=== PATIENT | female | born 1965 | race Hispanic/Latino ===

== ENCOUNTER 2018-02-27 10:15 | Emergency (ER) | payer OTHER ==
[~2018-02-27] VITALS: Ht 157.5 cm; Wt 81.6 kg
[~2018-02-27 10:15] MED LIST: COLACE100 MG PO; FERROUS SULFAT325 MG PO; LISINOPRIL10 MG PO; MACRODANTIN100 MG PO; TYLENOL WITH C1 EACH PO
[2018-02-27] MEDS ORDERED: MORPHINE SULFATE 2 MG/ML SYR IV STA (10:37)
[2018-02-27] MEDS ORDERED: ONDANSETRON HCL 4 MG ORAL DISINTEGRATING TAB PO ONE (10:45)
[2018-02-27] MEDS ORDERED: TETANUS/DIPHTHERIA TOX ADULT 0.5 ML SYR IM ONE (10:45)
[2018-02-27] MEDS ORDERED: LIDOCAINE 1% W/EPINEPHRINE 20 ML VIAL INJ ONE (11:15)
[2018-02-27] MEDS ORDERED: CEFAZOLIN SOD 1 GM VIAL IV SCH (12:00)
[2018-02-27] MEDS ORDERED: CEFAZOLIN SOD 1 GM in WATER STERILE 10ML VIAL 10 ML IV SCH (12:00)
--- NOTE | 2018-02-27 12:04 | Diagnostic Imaging Report ---
PROCEDURE:X-RAY LEFT KNEE, THREE OR MORE VIEWS COMPARISON:None. INDICATIONS:LACERATION TO PATELLA FINDINGS: The bones are well-mineralized. There are no fractures, subluxations, lytic or blastic lesions. There is no evidence of a joint effusion. CONCLUSION: No acute radiographic abnormality. Dictated by: James Turner M.D. on 02/27/2018 at 12:05 Electronically approved by: James Turner M.D. on 02/27/2018 at 12:05
--- NOTE | 2018-02-27 12:05 | Diagnostic Imaging Report ---
PROCEDURE:X-RAY LEFT LOWER LEG COMPARISON:None. INDICATIONS:LACERATION TO THE KNEE FINDINGS: There are no fractures, dislocations, lytic or blastic lesions. The bones are well-mineralized. The soft-tissues are unremarkable. CONCLUSION: No acute radiographic abnormality. Dictated by: James Turner M.D. on 02/27/2018 at 12:06 Electronically approved by: James Turner M.D. on 02/27/2018 at 12:06
[2018-02-27 13:33] VITALS: BP 149/80
== END 2018-02-27 13:50 | disposition home or self-care (01) ==
LOC: ER 10:15
PROC: 0HQLXZZ Repair Left Lower Leg Skin, External Approach (ICD-10-PCS; principal; 2018-02-27)
DX: S81.812A Laceration without foreign body, left lower leg, initial encounter (principal); S80.02XA Contusion of left knee, initial encounter; W10.8XXA Fall (on) (from) other stairs and steps, initial encounter; Y92.008 Other place in unspecified non-institutional (private) residence as the place of occurrence of the external cause; I10 Essential (primary) hypertension
CPT/HCPCS: 12034; 73562; 73590; 90471; 90714; 99284; J0690; J2270

== ENCOUNTER 2018-03-05 17:36 | Emergency (ER) | payer OTHER ==
[~2018-03-05] VITALS: Ht 157.5 cm; Wt 81.6 kg
--- OUTSIDE RECORDS SUMMARY | 2018-03-05 17:40 | XMS REPORT | Continuity of Care Document ---
Author Author [facility] Organization [facility] Address [address] [place] [place] [address] Phone Unavailable Care Team Providers Care Community Associate Name Role Phone VIV GONZALES PCP Insurance Providers Guarantor Viraj Koo Address [address] [place] [address] Email PTDECLINED [facility] Policy Number [id number] Subscriber's Name Viraj Koo Relationship 18 Self / Same As Patient Group Number [id number] Group Name [employer] Effective Date 15 Advance Directives Directive Response Recorded Date/Time Does the patient have an advance directive? No 10/13/15 11:15am If yes, is advance directive on file with [facility]? No 08/16/14 11:19am If not on file with [facility] will patient provide a copy? No 08/16/14 11:19am Do you have a Directive to Physician? No 02/27/18 1:09pm Do you have a Medical Power of Aircraft Fuselage Framer? No 02/27/18 1:09pm Do you have an out of hospital Do Not Resuscitate Order? No 02/27/18 1:09pm Do you have any special needs we should be aware of? No 02/27/18 1:09pm Do you have a support person here with you today? Yes 02/27/18 1:09pm Did patient receive Notice of Privacy Practices? Yes 02/27/18 1:09pm Did patient receive patient rights and responsibilities? Yes 02/27/18 1:09pm Problems No problem information available. Medications Current Home Medications Medication Dose Units Route Directions Days Qty Instructions Start Date Acetaminophen With Codeine (Tylenol With Codeine #3 Tablet) 1 Each Tablet 300 Mg Oral Every 4 Hours for Pain Docusate Sodium (Colace) 100 Mg Cap 100 Mg Oral Twice A Day 30 Cap Ferrous Sulfate 325 Mg Tablet 325 Mg Oral Twice A Day Lisinopril 10 Mg Tablet 20 Mg Oral Daily 30 Tab Nitrofurantoin Macrocrystal (Macrodantin) 100 Mg Capsule 100 Mg Oral Twice A Day 14 Cap Social History Social History Problem Response Recorded Date/Time Onset Date Status Hx Psychiatric Problems No 10/13/2015 11:15am Not Applicable Not Applicable Smoking Status Start Date Stop Date Never Smoker Hospital Discharge Instructions No hospital discharge instruction information available. Plan of Care Discharge Date 02/27/18 1:50pm Disposition HOME, SELF-CARE Condition at Discharge Stable Instructions/Education Provided Laceration Forms Provided Work/School Excuse Prescriptions See Medication Section Referrals RADHA ELLIS MD Order Date: Call for an appointment Address: [address] [place] [address] [place] [id number] Additional Instructions/Education Clean wound/s daily and keep dry. You may use soap and water 2 to 3 times per day and apply a thin layer of antibiotic ointment. Take Motrin/Tylenol as needed for pain. Take the prescribed medication as Watch for any local signs of infection. Follow up with Orthopedic referral physician listed in 7-10 days for suture removal or sooner if you notice any signs of infection. Return to the emergency department for any concerns. Limpie las heridas a diario y mantngase seco. Puede usar agua y jabn de 2 a 3 veces por da y aplicar jaclyn capa delgada de ungento antibitico. Sorento Motrin / Tylenol segn sea necesario para el dolor. Sorento la medicacin prescrita live observacin de cualquier signo local de infeccin. Realice un seguimiento con el mdico de referencia ortopdico que figura en la lista de 7 a 10 bentley para la extraccin de la sutura o antes si observa signos de infeccin. Regrese al departamento de emergencias por cualquier inquietud. Functional Status No functional status information available. Allergies, Adverse Reactions, Alerts Allergen Type Severity Reaction Status Last Updated Latex Allergy Unknown Active 02/27/18 Immunizations No immunization information available. Vital Signs Acute Vital Signs Vital Response Date/Time Pulse Pulse Rate (adult) 67 bpm (60 - 90) 02/27/2018 1:33pm Respiratory Rate 18 bpm (12 - 24) 02/27/2018 1:33pm Blood Pressure 149/80 mm Hg 02/27/2018 1:33pm Height 5 ft 2 in 02/27/2018 10:20am Weight 180 lb 02/27/2018 10:20am Body Mass Index 32.9 kg/m^2 02/27/2018 10:20am Results No relevant diagnostic test, laboratory data and/or discharge summary information available. Procedures No procedure information available. Encounters Encounter Location Arrival/Admit Date Discharge/Depart Date Attending Provider Departed Emergency Room [facility] 02/27/18 10:15am 02/27 1:50pm ANJALI EID MD
--- OUTSIDE RECORDS SUMMARY | 2018-03-05 17:40 | XMS REPORT ---
Author Author [facility] Address Unknown Phone Unavailable Care Team Providers Care Tow Motor Driver Name Role Phone ANJALI EID Unavailable Unavailable Problems This patient has no known problems. Allergies, Adverse Reactions, Alerts This patient has no known allergies or adverse reactions. Medications This patient has no known medications. Results Test Description Test Time Test Comments Text Results Atomic Results Result Comments LOWER LEG LEFT [place] [id number] [place] [id number] Patient Name: VIRAJ DOOLEY MR #: [id number] : 1965 Age/Sex: 52/F Req # : [id number] Adm Physician: Ordered by: ROBB CHOU PROVIDER RELATIONS CONSULTANT Report #: [id number] Location: ER Room/Bed: Procedure: [id number] DX/LOWER LEG LEFT Exam Date: 02/27/18 Exam Time : 1130 REPORT STATUS: Signed PROCEDURE: X-RAY LEFT LOWER LEG COMPARISON: None. INDICATIONS: LACERATION TO THE KNEE FINDINGS: There are no fractures, dislocations, lytic or blastic lesions. The bones are well-mineralized. The soft-tissues are unremarkable. CONCLUSION: No acute radiographic abnormality. Dictated by: Jose Guadalupe Medley M.D. on 02/27/2018 at 12:06 Electronically approved by: Jose Guadalupe Medley M.D. on 02/27/2018 at 12:06 Dictated By: JOSE GUADALUPE MEDLEY MD 05 Transcribed By: BRIDGER on 02/27/181205 COPY TO: ROBB CHOU NP KNEE LEFT THREE VIEWS [place] [address] Patient Name: VIRAJ DOOLEY MR #: [id number] : 1965 Age/Sex: 52/F Req #: [id number] Adm Physician: Ordered by: ROBB CHOU NP Report #: [id number] Location: ER Room/Bed: Procedure: [id number] DX/KNEE LEFT THREE VIEWS Exam Date: 02/27/18 Exam Time: 1130 REPORT STATUS: Signed PROCEDURE: X- RAY LEFT KNEE, THREE OR MORE VIEWS COMPARISON: None. INDICATIONS: LACERATION TO PATELLA FINDINGS: The bones are well-mineralized. There are no fractures, subluxations, lytic or blastic lesions. There is no evidence of a joint effusion. CONCLUSION: No acute radiographic abnormality. Dictated by: Jose Guadalupe Medley M.D. on 02/27/2018 at 12:05 Electronically approved by: Jose Guadalupe Medley M.D. on 02/27/2018 at 12:05 Dictated By: JOSE GUADALUPE MEDLEY MD 04 COPY TO: ROBB CHOU NP
[2018-03-05] MEDS ORDERED: DEXAMETHASONE SOD PHOS 10 MG/1 ML VIAL INJ ONE (18:00)
[2018-03-05] MEDS ORDERED: DIAZEPAM 5 MG TAB PO ONE (18:00)
[2018-03-05] MEDS ORDERED: KETOROLAC TROMETHAMINE 60 MG/2 ML VIAL IM ONE (18:00)
[2018-03-05] MEDS ORDERED: DIAZEPAM 2 MG TAB PO ONE (18:00)
[2018-03-05] MEDS ORDERED: HYDROCODONE/APAP 10MG-325MG TAB PO ONE (18:00)
--- NOTE | 2018-03-05 18:32 | Diagnostic Imaging Report ---
PROCEDURE:HIP RIGHT 2-3 VW (+/- PELVIS) COMPARISON:None. INDICATIONS:FALL LAST , RIGHT HIP PAIN FINDINGS: Normal mineralization. No acute displaced fracture or dislocation. Joint spaces are within normal limits. Focal lucent lesion with peripheral sclerosis is present in the right femoral neck. No expansile lucent or sclerotic lesion. The soft tissues are unremarkable. CONCLUSION: No acute radiographic abnormality. Nonaggressive bony lesion in the right femoral neck. Dictated by: James Turner M.D. on 03/05/2018 at 18:34 Electronically approved by: James Turner M.D. on 03/05/2018 at 18:34
[2018-03-05 19:15] VITALS: BP 107/61
== END 2018-03-05 19:11 | disposition home or self-care (01) ==
LOC: ER 17:36
DX: M25.551 Pain in right hip (principal); M54.31 Sciatica, right side; I10 Essential (primary) hypertension
CPT/HCPCS: 73502; 96372; 99284; J1100; J1885

== ENCOUNTER → 2018-05-22 | Outpatient (CLI) | payer OTHER ==
[~2018-05-22] MED LIST changes: +DIATRIZOATE MEGL/DIATRIZOA SOD 30 ML BTL PO ONE; +IOPAMIDOL 370 MG/ML 200 ML INFUS..BTL INJ ONE; +SODIUM CHLORIDE 0.9% 50ML 50 ML ONE
[2018-05-22 15:22] LABS: BLOOD UREA NITROGEN 9 mg/dL (7-26); BUN/CREATININE RATIO 14 (6-25); CREATININE, SERUM 0.63 mg/dL (0.57-1.11); EST GLOMERULAR FILTRATION RATE > 60 ML/MIN (60-)
--- NOTE | 2018-05-22 18:08 | Diagnostic Imaging Report ---
PROCEDURE: CT ABDOMEN AND PELVIS WITH CONTRAST TECHNIQUE: The abdomen and pelvis were scanned utilizing a multidetector helical scanner from the diaphragm to the lesser trochanter after the IV administration of 100 cc of Isovue 370 and the oral administration of dilute Gastrografin. Coronal and sagittal multiplanar reformations were obtained. COMPARISON: Patients [facility], CT, CT ABDOMEN/PELVIS W, 08/16/2014, 12:17. INDICATIONS: DIVERTICULITIS FINDINGS: LOWER THORAX: Linear opacities in the lateral right middle lobe and right lower lobe (series 2, image 6), likely representing subsegmental atelectasis or scarring. HEPATOBILIARY: Diffusely decreased attenuation of the hepatic parenchyma compared to the spleen, consistent with steatosis. Normal hepatic contour and size. Slight interval increase in size of 3.9 x 3.0 x 3.4 cm multilobulated lesion with fluid density and very thin internal septations in hepatic segment VIII (series 2, image 20, coronal, image 66, and sagittal image 56), which previously measured approximately 3.6 x 2.5 x 2.7 cm. No other focal lesions. No biliary ductal dilation. Cholecystectomy clips. SPLEEN: No splenomegaly. PANCREAS: No focal masses or ductal dilatation. ADRENALS: Left adrenal gland is unremarkable. Stable 1.1 x 1.1 cm nodule in the right adrenal gland (series 2 image 30). KIDNEYS/URETERS: No hydronephrosis, stones, or solid mass lesions. PELVIC ORGANS/BLADDER: Bladder is unremarkable. Uterus is absent. No adnexal masses. PERITONEUM / RETROPERITONEUM: No free air or fluid. LYMPH NODES: No lymphadenopathy. VESSELS: Unremarkable. GI TRACT: Descending and sigmoid colon diverticulosis. There is an approximately 4 cm segment at the junction of the distal descending and proximal sigmoid colon which shows moderate wall thickening and moderate surrounding fat stranding (coronal image 57 and series 2, images 55-70). Punctate extraluminal air foci are noted in the adjacent mesentery (for example series 2, images 66 and 64). No well-defined enhancing fluid collections. Rest of the bowel shows no wall thickening, dilation, or obstruction. Stomach is unremarkable. BONES AND SOFT TISSUES: No aggressive lytic lesions. Stable fat-containing umbilical hernia (sagittal image 75), which measures approximately 3.0 x 3.1 x 3.1 cm (sagittal image 74). IMPRESSION: 1. Findings consistent with acute diverticulitis at the junction of the distal descending and proximal sigmoid colon, with microperforation, contained in the adjacent mesentery. No camelia pneumoperitoneum or abscess formation. 2. Diffuse hepatic steatosis. 3. Slight interval increase in size in multilobulated simple cystic lesion in hepatic segment VIII, which may represent 3 adjacent simple cysts. 4. Stable 1.1 cm indeterminate nodule in the right adrenal gland. This lesion may be further assessed with CT abdomen with adrenal mass protocol on a nonemergent basis. 5. Findings discussed with Dr. Cordero, May 22, 2018 at 1755 hrs. Nav Ojeda M.D. Dictated by: Nav Ojeda M.D. on 05/22/2018 at 18:12 Electronically approved by: Nav Ojeda M.D. on 05/22/2018 at 18:12
== END ==
LOC: CT 14:42
PROVIDERS: ATTEND Family Medicine
DX: R10.9 Unspecified abdominal pain (principal)
CPT/HCPCS: 36415; 74177; 82565; 84520; Q9967

== ENCOUNTER 2018-09-19 21:26 | Emergency (ER) | payer OTHER ==
[~2018-09-19] VITALS: Ht 157.5 cm; Wt 81.6 kg
[~2018-09-19 21:26] MED LIST changes: -DIATRIZOATE MEGL/DIATRIZOA SOD 30 ML BTL PO ONE; -IOPAMIDOL 370 MG/ML 200 ML INFUS..BTL INJ ONE; -SODIUM CHLORIDE 0.9% 50ML 50 ML ONE
[2018-09-19] MEDS ORDERED: TRAMADOL HCL 50 MG TAB PO ONE (22:15)
[2018-09-19] MEDS ORDERED: KETOROLAC TROMETHAMINE 60 MG/2 ML VIAL IM ONE (22:15)
[2018-09-19] MEDS ORDERED: ONDANSETRON HCL 4 MG ORAL DISINTEGRATING TAB PO ONE (22:15)
[2018-09-19 23:12] LABS: COLOR,URINE YELLOW (YELLOW)
[2018-09-19 23:13] LABS: BILIRUBIN,URINE NEGATIVE (NEGATIVE); CLARITY,URINE HAZY (CLEAR); KETONES,URINE NEGATIVE (NEGATIVE); LEUKOCYTE ESTERASE ,URINE 2+ (NEGATIVE); NITRITE,URINE NEGATIVE (NEGATIVE); PROTEIN,URINE DIPSTICK 1+ (NEGATIVE); URINE UROBILINOGEN 0.2 mg/dL (0.2 - 1)
[2018-09-19 23:21] LABS: BACTERIA,URINE FEW /HPF; EPITHELIAL CELLS,URINE FEW /LPF; RBC,URINE 21-50 /HPF (0-5)
--- NOTE | 2018-09-19 23:53 | Diagnostic Imaging Report ---
Lumbar Spine Radiographs: 3 views HISTORY: Severe middle/low back pain today. COMPARISON: None available. DISCUSSION: Some of the osseous structures are partially obscured by stool and bowel gas. There are five non-rib bearing lumbar vertebral bodies. 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 The alignment of the spine is within normal limits. No displaced fracture or compression deformity is identified. Cholecystectomy clips in the right upper quadrant. Disc Spaces: Mild disc space narrowing at L4-L5. Facets: Mild facet arthrosis of the lower lumbar spine. IMPRESSION: No acute radiographic abnormality. Signed by: DR. Blane Arriaga MD on 09/19/2018 11:50 PM
[2018-09-20 00:57] VITALS: BP 124/76
== END 2018-09-20 01:08 | disposition home or self-care (01) ==
LOC: ER 21:26
DX: M54.5 Low back pain (principal); S39.012A Strain of muscle, fascia and tendon of lower back, initial encounter; X50.1XXA Overexertion from prolonged static or awkward postures, initial encounter; Y92.008 Other place in unspecified non-institutional (private) residence as the place of occurrence of the external cause
CPT/HCPCS: 72100; 81001; 99283; J1885; Q0162

== ENCOUNTER 2020-02-07 19:43 | Emergency (ER) | payer OTHER ==
[~2020-02-07] VITALS: Ht 157.5 cm; Wt 90.7 kg
[2020-02-07] MEDS ORDERED: SODIUM CHLORIDE 0.9% 1000ML 1,000 ML IV STA (20:06)
[2020-02-07] MEDS ORDERED: MORPHINE SULFATE INJ 4 MG/ML INJ 1ML IV STA ×2 (20:06→23:46)
[2020-02-07] MEDS ORDERED: ONDANSETRON HCL INJ 2MG/ML 2ML 2 MG/ML VIAL IV STA ×2 (20:06→23:46)
[2020-02-07] MEDS ORDERED: METRONIDAZOLE 500MG/NS 100ML 100 ML IV STA (20:08)
[2020-02-07] MEDS ORDERED: ACETAMINOPHEN 325 MG TAB PO ONE (20:15)
[2020-02-07 20:25] LABS: BASOPHILS # (AUTO) 0.1 (0.0-0.1); BASOPHILS % 0.4 % (0.0-1.0); EOSINOPHILS # (AUTO) 0.2 (0.0-0.4); EOSINOPHILS % 1.3 % (0.0-6.0); HEMATOCRIT 44.3 % (34.2-44.1); HEMOGLOBIN 14.8 g/dL (12.0-16.0); LYMPHOCYTES # (AUTO) 2.2 (1.0-3.2); LYMPHOCYTES % 14.5 % (18.0-39.1); MEAN CORPUSCULAR HEMOGLOBIN 29.5 pg (28-32); MEAN CORPUSCULAR HGB CONC 33.4 g/dL (31-35); MEAN CORPUSCULAR VOLUME 88.2 fL (81-99); MONOCYTES # (AUTO) 0.8 (0.2-0.8); MONOCYTES % 5.6 % (4.4-11.3); NEUTROPHILS # (AUTO) 11.7 (2.1-6.9); NEUTROPHILS % 77.9 % (38.7-80.0); PLATELET COUNT 410 x10e3/uL (140-360); RED BLOOD COUNT 5.02 x10e6/uL (3.6-5.1)
[2020-02-07] MEDS ORDERED: DIATRIZOATE MEGL/DIATRIZOA SOD 30 ML BTL PO ONE (20:37)
[2020-02-07 20:38] LABS: ALANINE AMINOTRANSFERASE 36 IU/L (0-55); ALBUMIN 3.8 g/dL (3.5-5.0); ALBUMIN/GLOBULIN RATIO 1.1 (0.8-2.0); ALKALINE PHOSPHATASE 68 IU/L (40-150); BLOOD UREA NITROGEN 11 mg/dL (7-26); BUN/CREATININE RATIO 15 (6-25); CALCIUM 9.4 mg/dL (8.4-10.2); CARBON DIOXIDE 25 mmol/L (22-29); CHLORIDE 109 mmol/L (98-107); CREATININE, SERUM 0.72 mg/dL (0.57-1.11); EST GLOMERULAR FILTRATION RATE > 60 ML/MIN (60-); GLUCOSE 138 mg/dL (74-118); LIPASE 17 U/L (8-78); SODIUM 141 mmol/L (136-145)
[2020-02-07 20:54] LABS: CLARITY,URINE CLEAR (CLEAR); COLOR,URINE YELLOW (YELLOW)
[2020-02-07 20:55] LABS: BILIRUBIN,URINE NEGATIVE (NEGATIVE); KETONES,URINE NEGATIVE (NEGATIVE); LEUKOCYTE ESTERASE ,URINE NEGATIVE (NEGATIVE); NITRITE,URINE NEGATIVE (NEGATIVE); PROTEIN,URINE DIPSTICK NEGATIVE (NEGATIVE); URINE UROBILINOGEN 0.2 mg/dL (0.2 - 1)
[2020-02-07 21:02] LABS: BACTERIA,URINE RARE /HPF; EPITHELIAL CELLS,URINE MODERATE /LPF; RBC,URINE 0-5 /HPF (0-5); WBC,URINE (MAN) 0-5 /HPF (0-5)
--- NOTE | 2020-02-07 21:45 | NUR ---
PT RESTING, VITAL SIGNS STABLE, PT VOICES NO COMPLAINTS AT THIS TIME, PT STATED PAIN HAS RESOLVED, PT AWARE OF POC
--- NOTE | 2020-02-07 22:45 | NUR ---
PT RESTING, VITAL SIGNS STABLE, PT VOICES NO COMPLAINTS AT THIS TIME.
--- NOTE | 2020-02-07 23:28 | Diagnostic Imaging Report ---
EXAM: CT Abdomen and Pelvis WITH contrast INDICATION: Left lower quadrant pain COMPARISON: Abdominal CT 05/22/2019. TECHNIQUE: Abdomen and pelvis were scanned utilizing a multidetector helical scanner from the lung base to the pubic symphysis after administration of IV contrast. Coronal and sagittal reformations were obtained. Routine protocol was performed. Scan was performed when during portal venous phase. IV CONTRAST: 100 mL of Isovue 370 ORAL CONTRAST: Gastrografin COMPLICATIONS: None RADIATION DOSE: Total DLP: 861 mGy*cm Estimated effective dose: (DLP x 0.015 x size factor) mSv CTDIvol has been reviewed. It is below the limits set by the Radiation Protocol Committee (RPC). Dose modulation, iterative reconstruction, and/or weight based adjustment of the mA/kV was utilized to reduce the radiation dose to as low as reasonably achievable. FINDINGS: LINES and TUBES: None. LOWER THORAX: Bibasilar atelectasis. Unremarkable HEPATOBILIARY: Hepatic parenchymal hypoattenuation. Stable 3.9 simple hepatic cyst Subtle peripheral hyperdensities may be vessels or reactive parenchymal hyperenhancement. No biliary ductal dilation. GALLBLADDER: There are cholecystectomy clips. SPLEEN: No splenomegaly. PANCREAS: There is fatty infiltration of the pancreas. ADRENALS: A 1 cm soft tissue dense right adrenal nodule. No left adrenal nodules. KIDNEYS/URETERS: Kidneys enhance symmetrically. No hydronephrosis. No cystic or solid mass lesions. No stones. GI TRACT: No abnormal distention, wall thickening, or evidence of bowel obstruction. Short segment sigmoid wall thickening and perisigmoid fat stranding. Colonic diverticulosis, worst in the sigmoid colon. Appendix is normal. PELVIC ORGANS/BLADDER: Hysterectomy. No adnexal masses. Perivesicular fat stranding. LYMPH NODES: No lymphadenopathy. VESSELS: Unremarkable. PERITONEUM / RETROPERITONEUM: No free air or fluid. BONES: There are degenerative changes in the spine. SOFT TISSUES: Unremarkable. IMPRESSION: 1. Acute uncomplicated sigmoid diverticulitis. 2. Perivesicular fat stranding, correlate for urinary bladder cystitis. 3. Hepatic steatosis. 4. A 1 cm indeterminate right adrenal nodule. Recommend abdominal CT adrenal mass protocol in in 6-12 months. Signed by: Gregor Gerber DO on 02/07/2020 11:25 PM
[2020-02-07 23:49] VITALS: BP 123/76
== END 2020-02-08 00:04 | disposition home or self-care (01) ==
LOC: ER 19:43
DX: K57.12 Diverticulitis of small intestine without perforation or abscess without bleeding (principal); K57.32 Diverticulitis of large intestine without perforation or abscess without bleeding; K76.0 Fatty (change of) liver, not elsewhere classified; E27.8 Other specified disorders of adrenal gland
CPT/HCPCS: 36415; 74177; 80053; 81001; 83690; 85025; 99284; J2270; J2405; J7030

== ENCOUNTER → 2021-07-21 | Outpatient (CLI) | payer OTHER | LOC: RAD 08:29 | PROVIDERS: ATTEND Family Medicine | DX: M54.5 Low back pain (principal) | CPT/HCPCS: 72110 ==

== ENCOUNTER 2022-09-30 07:21 | Emergency (ER) | payer OTHER ==
[~2022-09-30] VITALS: Ht 157.5 cm; Wt 86.2 kg
[2022-09-30 07:39] LABS: BASOPHILS # (AUTO) 0.1 (0.0-0.1); BASOPHILS % 0.6 % (0.0-1.0); EOSINOPHILS # (AUTO) 0.3 (0.0-0.4); EOSINOPHILS % 2.8 % (0.0-6.0); HEMOGLOBIN 15.2 g/dL (12.0-16.0); LYMPHOCYTES # (AUTO) 1.8 (1.0-3.2); LYMPHOCYTES % 18.4 % (18.0-39.1); MEAN CORPUSCULAR HEMOGLOBIN 29.7 pg (28-32); MEAN CORPUSCULAR HGB CONC 33.8 g/dL (31-35); MEAN CORPUSCULAR VOLUME 87.9 fL (81-99); MONOCYTES # (AUTO) 0.6 (0.2-0.8); MONOCYTES % 6.2 % (4.4-11.3); NEUTROPHILS # (AUTO) 7.1 (2.1-6.9); NEUTROPHILS % 71.7 % (38.7-80.0); PLATELET COUNT 348 x10e3/uL (140-360); RED BLOOD COUNT 5.12 x10e6/uL (3.6-5.1); RED CELL DISTRIBUTION WIDTH 13.2 % (11.7-14.4)
[2022-09-30] MEDS: ONDANSETRON HCL INJ 2MG/ML 2ML 2 MG/ML VIAL IV PRN (07:40)
[2022-09-30] MEDS: SODIUM CHLORIDE 0.9% 1000ML 1,000 ML IV STA (07:40)
[2022-09-30] MEDS: KETOROLAC TROMETHAMINE 30 MG/ML VIAL IV STA (07:55)
[2022-09-30 08:02] LABS: ALBUMIN/GLOBULIN RATIO 1.1 (0.8-2.0); ANION GAP 16.2 mmol/L (8-16); CALCIUM 9.3 mg/dL (8.4-10.2); CREATININE, SERUM 0.71 mg/dL (0.57-1.11); POTASSIUM 4.2 mmol/L (3.5-5.1)
[2022-09-30] MEDS: DICYCLOMINE HCL 20 MG/2 ML VIAL IM ONE (08:19)
[2022-09-30] MEDS ORDERED: IOPAMIDOL 370 MG/ML 100 ML INFUS..BTL INJ ONE (08:25)
[2022-09-30 08:35] LABS: CLARITY,URINE TURBID (CLEAR); COLOR,URINE YELLOW (YELLOW)
[2022-09-30 08:36] LABS: KETONES,URINE NEGATIVE (NEGATIVE); LEUKOCYTE ESTERASE ,URINE NEGATIVE (NEGATIVE); NITRITE,URINE POSITIVE (NEGATIVE); PROTEIN,URINE DIPSTICK NEGATIVE (NEGATIVE); URINE UROBILINOGEN 0.2 mg/dL (0.2 - 1)
[2022-09-30 08:42] LABS: BACTERIA,URINE MANY /HPF; EPITHELIAL CELLS,URINE MODERATE /LPF; RBC,URINE 0-5 /HPF (0-5)
[2022-09-30] MEDS ORDERED: CEFDINIR300 MG PO (09:04)
[2022-09-30] MEDS ORDERED: METRONIDAZOLE500 MG PO (09:05)
== END 2022-09-30 09:23 | disposition home or self-care (01) ==
LOC: ER 07:25
DX: R10.32 Left lower quadrant pain (principal); N39.0 Urinary tract infection, site not specified; K57.32 Diverticulitis of large intestine without perforation or abscess without bleeding; I10 Essential (primary) hypertension; K76.0 Fatty (change of) liver, not elsewhere classified; E78.5 Hyperlipidemia, unspecified; K21.9 Gastro-esophageal reflux disease without esophagitis
CPT/HCPCS: 36415; 74177; 80053; 81001; 83690; 85025; 87086; 87186; 99284; J0500; J1885; J2405; J7030; Q9967

== ENCOUNTER 2025-07-24 18:27 | Emergency (ER) | payer OTHER ==
[~2025-07-24] VITALS: Ht 309.9 cm; Wt 88.5 kg
[~2025-07-24 18:27] MED LIST changes: +AMOX TR-K CLV1 EAC2 PO; +CEFDINIR300 MG PO; +METRONIDAZOLE500 MG PO
[2025-07-24 19:48] VITALS: PULSE 71; RESP 18; TEMP 98.3; O2SAT 98
== END 2025-07-24 19:48 | disposition home or self-care (01) ==
LOC: ER 19:31
DX: M79.5 Residual foreign body in soft tissue (principal); F06.4 Anxiety disorder due to known physiological condition; I10 Essential (primary) hypertension; N32.81 Overactive bladder
CPT/HCPCS: 99282